=== PATIENT | female | born 1985 | race Caucasian/White ===

== ENCOUNTER 2022-02-02 04:38 | Inpatient (IN) | payer OTHER ==
[~2022-02-02] VITALS: Ht 170.2 cm; Wt 51.7 kg
[2022-02-02 04:46] VITALS: BP 180/87
--- NOTE | 2022-02-02 04:49 | NUR ---
Patient taken to bed 12.
--- NOTE | 2022-02-02 04:50 | NUR ---
Patient A/Ox4, chest rise and fall symmetrical, no c/o pain, seizure pads in place on both bedrails. Patient laying semifowlers position.
--- NOTE | 2022-02-02 04:51 | NUR ---
Dr. Zheng examining patient.
[2022-02-02] MEDS ORDERED: LORazepam 2 MG/ML VIAL IVP ONE (05:00)
[2022-02-02] MEDS ORDERED: NACL 0.9% 1,000 ML IV ONE (05:00)
[2022-02-02] MEDS ORDERED: LORazepam 1 MG TAB PO ONE (05:00)
[2022-02-02 05:45] LABS: BASOPHILS % (AUTO) 0.5 % (0.0-2.0); EOSINOPHILS % (AUTO) 0.3 % (0.0-4.0); HEMATOCRIT 34.6 % (36-48); HEMOGLOBIN 11.4 g/dL (12.0-16.0); LYMPHOCYTES % (AUTO) 16.8 % (20.5-51.1); MEAN CORPUSCULAR HEMOGLOBIN 26 pg (27-31); MEAN CORPUSCULAR HGB CONC 33 g/dL (33-37); MEAN CORPUSCULAR VOLUME 79.3 fL (80-94); MONOCYTES # (AUTO) 0.5 K/uL (0.8-1.0); MONOCYTES % (AUTO) 8.8 % (1.7-9.3); NEUTROPHILS # (AUTO) 4.3 K/uL (1.8-7.7); NEUTROPHILS % (AUTO) 73.6 % (42.2-75.2); PLATELET COUNT (AUTO) 149 K/uL (140-450); RED BLOOD CELL COUNT(AUTO) 4.37 MIL/uL (4.20-5.40); RED CELL DISTRIBUTION WIDTH 20.9 % (11.6-13.7); WHITE BLOOD COUNT (AUTO) 5.8 K/uL (4.8-10.8)
--- NOTE | 2022-02-02 06:12 | NUR ---
Dr. Olivo examining patient.
[2022-02-02 06:23] LABS: ANION GAP 16.6 (8-16); ASPARTATE AMINOTRANSFERASE 32 U/L (15-37); CARBON DIOXIDE 27.1 mmol/L (21-32); CHLORIDE 94 mmol/L (98-107); CREATININE 0.9 mg/dL (0.6-1.3); GFR ARICAN-AMERICAN 92 mL/min (>90); GLUCOSE 105 mg/dL (74-106); SODIUM SERUM 135 mmol/L (136-145); UREA NITROGEN, BLOOD 7 mg/dL (7-18)
[2022-02-02 06:28] LABS: ACETAMINOPHEN < 0.5 ug/ml (10-30); POTASSIUM 2.7 mmol/L (3.5-5.1); SALICYLATE < 2.8 mg/dL (2.8-20.0)
[2022-02-02] MEDS ORDERED: POTASSIUM CHLORIDE 10 MEQ TABER PO ONE ×2 (06:35→07:54)
[2022-02-02] MEDS ORDERED: MAG SULF 2000 MG/WATER PREMIX 50 ML IV ONE (06:35)
[2022-02-02] MEDS ORDERED: KCL 20 MEQ/WATER INJ PREMIX 200 ML IV ONE (06:35)
--- NOTE | 2022-02-02 07:25 | NUR ---
RECEIVED REPORT FROM RUBY MAYO. ASSUMED CARE AT THIS TIME.
--- NOTE | 2022-02-02 07:29 | NUR ---
Bedside report given to AM shift Nurses Ja RN and Tamika RN. AM shift Nurses Ja RN and Tamika RN verbalized understanding of report, no further questions. AM shift Nurses Ja RN and Tamika RN verbalized understanding of giving second bag of K-Jai.
--- NOTE | 2022-02-02 07:36 | NUR ---
PT RESTING IN BED WITH EYES OPEN. 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 PT DENIES PAIN OR DISCOMFORT AT THIS TIME. ALL NEEDS MET AT THIS TIME.
[2022-02-02 07:51] LABS: BARBITURATE, URINE NEGATIVE ng/ml (NEG <=200); BENZODIAZEPINE, URINE NEGATIVE ng/mL (NEG <=200); CANNABINOID, URINE POSITIVE ng/mL (NEG <=50); COCAINE, URINE NEGATIVE ng/mL (NEG <=300); OPIATE, URINE NEGATIVE ng/mL (NEG <=2000); PHENCYCLIDINE SCREEN,URINE NEGATIVE ng/mL (NEG <=25)
[2022-02-02] MEDS ORDERED: ACETAMINOPHEN 325 MG TAB PO PRN (08:20)
[2022-02-02] MEDS ORDERED: POTASSIUM CHLORIDE 10 MEQ TABER PO PRN (08:20)
[2022-02-02] MEDS ORDERED: guaiFENesin DM 200/20 MG-10 ML 10 ML UDC PO PRN (08:20)
[2022-02-02] MEDS ORDERED: HYDROcodone/APAP 7.5/325 MG 1 TAB PO PRN (08:20)
[2022-02-02] MEDS ORDERED: ZOLPIDEM 5 MG TAB PO PRN (08:20)
[2022-02-02] MEDS ORDERED: ONDANSETRON 4 MG/2 ML VIAL IM/IVP PRN (08:20)
[2022-02-02] MEDS ORDERED: DOCUSATE SODIUM 100 MG GELCAP PO PRN (08:20)
--- NOTE | 2022-02-02 08:21 | NUR ---
Patient will be admitted to care of DR HOPSON. Admited to TELE. Will go to room 121B. Belongings list completed. Report to RUBY FIERRO.
[2022-02-02] MEDS ORDERED: LORazepam 2 MG/ML VIAL IVP PRN (08:25)
[2022-02-02 08:35] VITALS: BP 124/76
--- NOTE | 2022-02-02 08:35 | NUR ---
RECEIVED PT FROM SHOELACE TIPPING MACHINE OPERATOR VIA KANDY, PT IS AWAKE, ALERT AND ORIENTED, ON ROOM AIR, IV LINES NOTED ON THE RIGHT HAND G. 18 WITH NS INFUSING AT 125ML/HR, AND ON THE LEFT HAND G. 22 WITH POTASSIUM IV INFUSING, PT IS ON SEIZURE PRECAUTION, NO SIGN OF DISTRESS NOTED AND WILL CONTINUE TO MONITOR PT.
[2022-02-02] MEDS: NACL 0.9% 1,000 ML IV SCH ×3 (09:27→21:02)
[2022-02-02] MEDS: PANTOPRAZOLE 40 MG TABEC PO SCH (09:27)
[2022-02-02] MEDS: FOLIC ACID 1 MG TAB PO SCH (09:28)
[2022-02-02] MEDS: THIAMINE 100 MG TAB PO SCH (09:28)
--- NOTE | 2022-02-02 09:28 | NUR ---
PT WAS GIVEN THE SCHEDULED AM ,MEDICATIONS NOW.
[2022-02-02] MEDS ORDERED: MAG SULF 2000 MG/WATER PREMIX 50 ML IV SCH (10:00)
[2022-02-02] MEDS ORDERED: LACT RING IV SCH (10:00)
[2022-02-02] MEDS ORDERED: DEXT IV SCH (10:00)
[2022-02-02] MEDS ORDERED: MULTIVITAMIN IV SCH (10:00)
[2022-02-02 10:15] LABS: PROTHROMBIN TIME 11.7 secs (10.8-13.4)
[2022-02-02 11:04] LABS: AMYLASE 102 U/L (25-115); CHOL/HDL RATIO 1.4 (1-4.5); FREE T4 (FREE THYROXINE) 1.01 ng/dL (0.76-1.46); HDL CHOLESTEROL 106 mg/dL (40-60); LDL (CALC) 32 mg/dL (60-100); MAGNESIUM 1.2 mg/dL (1.8-2.4); PHOSPHORUS 3.1 mg/dL (2.5-4.9); THYROID STIMULATING HORMONE 2.75 uIU/mL (0.34-3.74); TRIGLYCERIDES 44 mg/dL (30-150)
[2022-02-02] MEDS ORDERED: MULTIVITAMIN-12 10 ML, FOLIC ACID 1 MG in DEXT 5% / LACT RING 1,000 ML IV ONE (11:20)
[2022-02-02 12:00] VITALS: BP 126/85
[2022-02-02] MEDS: LORazepam 1 MG TAB PO SCH ×2 (13:49→21:10)
--- NOTE | 2022-02-02 13:49 | NUR ---
pt was assisted by the principal technologist to go to the bathroom now and urinated.
--- NOTE | 2022-02-02 14:59 | NUR ---
PATIENT HAS BEEN SCREENED AND CATEGORIZED MODERATE NUTRITION RISK. PATIENT WILL BE SEEN WITHIN 3-5 DAYS OF ADMISSION. 02/05/2210/24/[address]
[2022-02-02 16:00] VITALS: BP 132/87
--- NOTE | 2022-02-02 19:23 | NUR ---
ENDORSED PT TO NIGHT RN FOR CONTINUITY OF CARE, PT IS EATING HER DINNER.
[2022-02-02 20:00] VITALS: BP 130/89
--- NOTE | 2022-02-02 21:00 | NUR ---
BANANA BAG FINISHED - WILL HOOK IVF NSS
[2022-02-02 21:01] LABS: APPEARANCE,URINE SL CLOUDY (CLEAR); BILIRUBIN,URINE NEGATIVE (NEGATIVE); BLOOD, URINE TRACE-L (NEGATIVE); COLOR,URINE AMBER (YELLOW); LEUKOCYTE ESTERASE ,URINE NEGATIVE (NEGATIVE); NITRITE, URINE NEGATIVE (NEGATIVE); UGLUCOSE 1+ (NEGATIVE)
[2022-02-02 21:15] LABS: OTHER CASTS, URINE None Seen /LPF (None Seen); RBC,URINE 0-5 /HPF (0-5); WBC,URINE 0-5 /HPF (0-5)
--- NOTE | 2022-02-02 23:00 | NUR ---
C/O SLEEPLESSNESS - REQUESTING FOR SLEEPING PILL - BP 133/99 , HR 86 , RR18 , O2 SAT 98% - WILL MEDICATE. CA;LL LIGHT WITHIN REACH .
[2022-02-03] VITALS: BP 133/99
--- NOTE | 2022-02-03 | NUR ---
ROUNDS , NO S/SX OF ACUTE DISTRESS NOTED .
--- NOTE | 2022-02-03 02:00 | NUR ---
SLEEPING , ON TELE MONITOR .
[2022-02-03 04:00] VITALS: BP 130/85
--- NOTE | 2022-02-03 04:00 | NUR ---
ROUNDS , NO S/SX OF ACUTE DISTRESS NOTED .
--- NOTE | 2022-02-03 06:00 | NUR ---
AWAKE , NO COMPLAIN MADE .
[2022-02-03] MEDS: NACL 0.9% 1,000 ML IV SCH (06:23)
[2022-02-03] MEDS: LORazepam 1 MG TAB PO SCH (06:25)
[2022-02-03 06:53] LABS: BASOPHILS % (AUTO) 0.5 % (0.0-2.0); EOSINOPHILS # (AUTO) 0.1 K/uL (0-0.4); EOSINOPHILS % (AUTO) 3.2 % (0.0-4.0); HEMATOCRIT 30.3 % (36-48); LYMPHOCYTES # (AUTO) 1.3 K/uL (2.5-16.5); LYMPHOCYTES % (AUTO) 29.6 % (20.5-51.1); MEAN CORPUSCULAR HEMOGLOBIN 27 pg (27-31); MEAN CORPUSCULAR HGB CONC 33 g/dL (33-37); MEAN CORPUSCULAR VOLUME 80.8 fL (80-94); MONOCYTES # (AUTO) 0.3 K/uL (0.8-1.0); MONOCYTES % (AUTO) 7.8 % (1.7-9.3); NEUTROPHILS # (AUTO) 2.5 K/uL (1.8-7.7); NEUTROPHILS % (AUTO) 58.9 % (42.2-75.2); PLATELET COUNT (AUTO) 120 K/uL (140-450); RED BLOOD CELL COUNT(AUTO) 3.75 MIL/uL (4.20-5.40); RED CELL DISTRIBUTION WIDTH 20.3 % (11.6-13.7); WHITE BLOOD COUNT (AUTO) 4.2 K/uL (4.8-10.8)
[2022-02-03 07:34] LABS: ANION GAP 11.3 (8-16); CREATININE 0.7 mg/dL (0.6-1.3); POTASSIUM 3.3 mmol/L (3.5-5.1)
--- NOTE | 2022-02-03 07:36 | NUR ---
RECEIVED BEDSIDE REPORT FROM NIGHTSHIFT RUBY JANE FOR CONTINUITY OF CARE. PATIENT IS A&OX4, ON ROOM AIR. PT HAS A 22G IV ON THE LEFT ARM, AND 20G IV ON THE RIGHT HAND WHICH IS PATENT AND INTACT. PT IS RESTING, WITH NO S/S OF DISTRESS.
--- NOTE | 2022-02-03 07:36 | NUR ---
ENDORSED PT STABLE .
[2022-02-03 08:00] VITALS: BP 134/94
[2022-02-03] MEDS ORDERED: MULTIVITAMIN 1 TAB PO SCH (09:00)
[2022-02-03] MEDS: THIAMINE 100 MG TAB PO SCH (09:13)
[2022-02-03] MEDS: FOLIC ACID 1 MG TAB PO SCH (09:14)
[2022-02-03] MEDS: PANTOPRAZOLE 40 MG TABEC PO SCH (09:14)
[2022-02-03 11:08] LABS: T4 (THYROXINE) 6.8 ug/dL (4.5-12.0)
[2022-02-03 12:00] VITALS: BP 133/93
--- NOTE | 2022-02-03 12:23 | NUR ---
DC PLANNING SW MET WITH PATIENT AT BEDSIDE TO COMPLETE ASSESSMENT. PATIENT REPORTS RENTING A ROOM AT THE ADDRESS LISTED ON FILE. PATIENT REPORTS BEING BROUGHT IN BY A FRIEND SHE WAS VISITING. PATIENT IDENTIFIED HER MOTHER, JUAQUIN FLETCHER, EMERGENCY CONTACT AND MDM. PATIENT DENIED HAVE AD IN PLACE AND DECLINED AD OFFERED BY SW. PATIENT REPORTS MEETING WITH PCP, NEEDED, LAST VISIT 7 MONTHS AGO. PATIENT DENIES TAKING MEDICATION AT THIS TIME AND DENIES BARRIERS IN ACCES TO NEEDED MEDICATIONS. PATIENT REPORTS PICKING UP MEDICATION FROM [facility] [place], WHEN NEEDED. PATIENT REPORTS BEING INDEPENDENT IN ALL ACTIVITIES AND DENIES USE OF DME. PATIENT DENIES MENTAL HEALTH HX. PATIENT REPORTS CHRONIC ALCOHOL USE SPANNING OVER 10 YEARS. PATIENT REPORTS DRINKING "4 TALL CANS EVERYDAY". PATIENT REPORTS BEING SOBRIETY FOR 7 MONTHS HOWEVER RELAPSED. SW ACTIVELY LISTENED PATIENT REPORTED ON CURRENT STRESSORS. PATIENT ACCEPTED SUBSTANCE USE RESOURCES PROVIDED BY SW. SW ATTEMPTED TO ASSIST CLIENT IN IDENTIFYING COPING SKILLS. PATIENT STRUGGLED TO PARTICIPATE. PATIENT DENIES CURRENTLY WORKING AT THIS TIME AND REPORTS LIVING ON HER SAVING ACCOUNT. PATIENT REPORTS ADEQUATE FOOD SOURCES AT HOME. PATIENT REPORTS FEEING SAFE AT HOME. PT REPORTS DC PLAN IS TO RETURN HOME WHEN MEDICALLY STABLE WITH ROOMMATE PICKING HER UP. SW INQUIRED ON ADDITIONAL RESOURCES NEEDED, PATIENT DECLINED.
[2022-02-03] MEDS ORDERED: THIA-34 PO (12:43)
[2022-02-03] MEDS ORDERED: FOLI1TAB90 PO (12:43)
[2022-02-03] MEDS ORDERED: ZOLP5TAB1 PO (12:43)
[2022-02-03] MEDS ORDERED: THE PO (12:43)
[2022-02-03] MEDS ORDERED: NITR100C7 PO (12:43)
[2022-02-03] MEDS ORDERED: LIB25 PO (12:43)
[2022-02-03 13:00] VITALS: BP 133/93
== END 2022-02-03 14:05 | disposition home or self-care (01) | DRG 53 ==
LOC: MED 04:38 → MTU 07:22
PROVIDERS: ADMIT Family Medicine; ATTEND Family Medicine
DX: G40.509 Epileptic seizures related to external causes, not intractable, without status epilepticus (principal); G92.9 Unspecified toxic encephalopathy; E87.20 Acidosis, unspecified; D63.8 Anemia in other chronic diseases classified elsewhere; E83.51 Hypocalcemia; F10.139 Alcohol abuse with withdrawal, unspecified; E83.42 Hypomagnesemia; E87.6 Hypokalemia; E53.8 Deficiency of other specified B group vitamins; G47.00 Insomnia, unspecified; Y90.9 Presence of alcohol in blood, level not specified; F32.A Depression, unspecified; G25.2 Other specified forms of tremor; F41.9 Anxiety disorder, unspecified; G62.9 Polyneuropathy, unspecified; Z20.822 Contact with and (suspected) exposure to COVID-19
CPT/HCPCS: 36415; 80048; 80053; 80305; 81001; 82150; 83036; 83690; 83735; 83880; 84100; 84436; 84439; 84443; 84479; 84484; 85025; 85610; 85730; 87081; 93005; 96361; 96365; 96368; 96375; 99285; A9153; G0480; G0482; J2060; J3475; J3480